=== PATIENT | male | born 1970 | race Caucasian/White ===

== ENCOUNTER 2020-11-11 16:31 | Emergency (ER) | payer MEDICAID, OTHER ==
[~2020-11-11] VITALS: Ht 170.2 cm; Wt 74.8 kg
[~2020-11-11 16:31] MED LIST: HYDR-3658
--- NOTE | 2020-11-11 16:31 | NUR ---
PT BIB SELF C/O TESTICULAR PAIN AND SWELLING X 3 DAYS. PT IS AAOX4, NOT IN RESPIRATORY DISTRESS, V/S STABLE, KEPT RESTED AND COMFORTABLE. WILL CONTINUE TO MONITOR.
--- NOTE | 2020-11-11 17:04 | NUR ---
SEEN AND EXMAINED BY ARELIS RODRIGUEZ
[2020-11-11] MEDS ORDERED: HYDROCODONE/APAP 5/325MG TABLET ONE (17:06)
[2020-11-11] MEDS ORDERED: HYDROCODONE/APAP 5/325MG TABLET PO ONE (17:30)
[2020-11-11 18:35] LABS: BILIRUBIN,URINE SMALL (NEGATIVE); COLOR,URINE YELLOW (YELLOW); LEUKOCYTE ESTERASE ,URINE Negative (NEGATIVE); NITRITE, URINE Negative (NEGATIVE); PH,URINE 5.5 (5.0-8.0); PROTEIN,URINE 100 mg/dl (NEGATIVE); UGLUCOSE Negative (NEGATIVE); UROBILINOGEN,URINE 0.2 EU/dL (0.2)
[2020-11-11 18:44] LABS: BACTERIA,URINE Many /HPF (None Seen); SQUAMOUS EPITHELIAL CELL,UR Few /HPF (None Seen); URINE AMORPHOUS URATE Few /HPF (None Seen); WBC,URINE 0-2 /HPF (0-3)
--- NOTE | 2020-11-11 18:45 | NUR ---
U/S TECH AT BEDSIDE FOR SCROTAL ULTRASOUND
[2020-11-11] MEDS ORDERED: IBUP-1955 PO (19:06)
[2020-11-11] MEDS ORDERED: TRAM50TA2 PO (19:06)
[2020-11-11] MEDS ORDERED: DOXY-326 PO (19:06)
[2020-11-11] MEDS ORDERED: CEFTRIAXONE 500 MG VIAL ONE (19:16)
[2020-11-11] MEDS ORDERED: DOXYCYCLINE HYCLATE (100 MG) 100 MG TABLET ONE (19:16)
[2020-11-11] MEDS ORDERED: LIDOCAINE /MPF 1% VIAL 5 ML VIAL ONE (19:16)
[2020-11-11 19:22] VITALS: BP 122/82
--- NOTE | 2020-11-11 19:22 | NUR ---
Patient discharged to home in stable condition. Written and verbal after care instructions given. Patient verbalizes understanding of instruction.
[2020-11-11] MEDS ORDERED: DOXYCYCLINE HYCLATE (100 MG) 100 MG TABLET PO ONE (19:30)
[2020-11-11] MEDS ORDERED: CEFTRIAXONE 500 MG VIAL IM ONE (19:30)
== END 2020-11-11 19:22 | disposition home or self-care (01) ==
LOC: ER 16:31
DX: N45.1 Epididymitis (principal); F17.200 Nicotine dependence, unspecified, uncomplicated; Z59.0 Homelessness; Z79.899 Other long term (current) drug therapy
CPT/HCPCS: 76870; 81001; 87086; 87491; 87591; 96372; 99284; J0696; J3490

== ENCOUNTER 2023-04-21 01:03 | Emergency (ER) | payer MEDICAID ==
[~2023-04-21] VITALS: Ht 170.2 cm; Wt 72.6 kg
[~2023-04-21 01:03] MED LIST changes: +DOXY-326 PO; +IBUP-1955 PO; +TRAM50TA2 PO
[2023-04-21 01:54] VITALS: BP 131/80; TEMP 98
[2023-04-21] MEDS ORDERED: CEFTRIAXONE 500 MG VIAL ONE (02:21)
[2023-04-21] MEDS ORDERED: AZITHROMYCIN 250 MG TABLET ONE (02:21)
[2023-04-21] MEDS ORDERED: LIDOCAINE 1%-EPI 1:100,000 20 ML VIAL ONE (02:24)
[2023-04-21] MEDS ORDERED: LIDOCAINE /MPF 1% VIAL 5 ML VIAL ONE (02:26)
[2023-04-21] MEDS ORDERED: AZITHROMYCIN 250 MG TABLET PO ONE (02:30)
[2023-04-21] MEDS ORDERED: CEFTRIAXONE 500 MG VIAL IM ONE (02:30)
[2023-04-21 03:29] VITALS: O2SAT 100
[2023-04-22 23:06] LABS: CHLAMYDIA TRACHOMATIS NAA Negative (Negative)
[2023-04-23 00:08] LABS: NEISSERIA GONORRHOEAE NAA Positive (Negative)
== END 2023-04-21 03:29 | disposition home or self-care (01) ==
LOC: ER 01:06
DX: R21 Rash and other nonspecific skin eruption (principal)
CPT/HCPCS: 99283; 96372; 87491; 87591; J0696; J3490

== ENCOUNTER 2023-08-31 03:27 | Emergency (ER) | payer MEDICAID ==
[2023-08-31] MEDS ORDERED: KETO10TA2 PO (06:41)
[2023-08-31] MEDS ORDERED: CLIN300C12 PO (06:41)
== END 2023-08-31 05:00 | disposition left against medical advice (07) ==
LOC: ER 03:27
DX: S80.929A Unspecified superficial injury of unspecified lower leg, initial encounter (principal); Z53.21 Procedure and treatment not carried out due to patient leaving prior to being seen by health care provider; X58.XXXA Exposure to other specified factors, initial encounter; Y93.89 Activity, other specified; Y92.89 Other specified places as the place of occurrence of the external cause; Y99.8 Other external cause status

== ENCOUNTER 2023-08-31 06:16 | Emergency (ER) | payer MEDICAID ==
[~2023-08-31] VITALS: Ht 177.8 cm; Wt 72.6 kg
[2023-08-31 06:24] VITALS: BP 133/84; TEMP 98.2; O2SAT 99
[2023-08-31] MEDS ORDERED: CLIN300C12 PO (06:41)
[2023-08-31] MEDS ORDERED: KETO10TA2 PO (06:41)
[2023-08-31] MEDS ORDERED: TDAP [DIPH/PERTUSSIS/TET] 0.5 ML VIAL IM ONE (06:42)
[2023-08-31] MEDS: TDAP [DIPH/PERTUSSIS/TET] 0.5 ML VIAL IM ONE (06:47)
== END 2023-08-31 06:48 | disposition home or self-care (01) ==
LOC: ER 06:17
DX: S81.811A Laceration without foreign body, right lower leg, initial encounter (principal); F17.200 Nicotine dependence, unspecified, uncomplicated; Z59.00 Homelessness unspecified; X58.XXXA Exposure to other specified factors, initial encounter; Y93.01 Activity, walking, marching and hiking; Y92.89 Other specified places as the place of occurrence of the external cause; Y99.8 Other external cause status
CPT/HCPCS: 90715